=== PATIENT | female | born 1970 | race Caucasian/White ===

== ENCOUNTER 2020-01-28 08:44 | Emergency (ER) | payer MEDICAID ==
[~2020-01-28] VITALS: Ht 167.6 cm; Wt 65.0 kg
[2020-01-28 09:03] VITALS: BP 93/35
[2020-01-28] MEDS ORDERED: CYCLOBENZAPRINE 10 MG TABLET ONE (09:36)
[2020-01-28] MEDS ORDERED: ACETAMINOPHEN 500 MG TABLET ONE (09:36)
[2020-01-28] MEDS ORDERED: KETOROLAC 30 MG/1 ML ONE (09:36)
[2020-01-28] MEDS ORDERED: CYCLOBENZAPRINE 10 MG TABLET PO ONE (10:00)
[2020-01-28] MEDS ORDERED: ACETAMINOPHEN 500 MG TABLET PO ONE (10:00)
[2020-01-28] MEDS ORDERED: KETOROLAC 30 MG/1 ML IM ONE (10:00)
== END 2020-01-28 10:22 | disposition home or self-care (01) ==
LOC: ED 09:39
DX: G89.4 Chronic pain syndrome (principal); M25.561 Pain in right knee; M25.562 Pain in left knee; M79.642 Pain in left hand; M79.7 Fibromyalgia; M32.9 Systemic lupus erythematosus, unspecified; Z79.01 Long term (current) use of anticoagulants; Z88.0 Allergy status to penicillin; Z88.8 Allergy status to other drugs, medicaments and biological substances
CPT/HCPCS: 96372; 99283; J1885